=== PATIENT | female | born 1975 | race Hispanic/Latino ===

== ENCOUNTER 2016-11-07 05:36 | Emergency (ER) | payer OTHER ==
[~2016-11-07] VITALS: Ht 154.9 cm; Wt 56.7 kg
[~2016-11-07 05:36] MED LIST: 3-DAY VAGINAL C21 GM VG; BACTRIM DS 8001 TAB PO; CIPRO 500MG (E500 MG PO; CIPRO 500MG TA500 MG PO; DIFLUCAN150 M1 PO; DIFLUCAN150 MG PO; METROGEL0.751 VG; PYRIDIUM100 MG PO; PYRIDIUM200 MG PO
[2016-11-07 05:40] VITALS: BP 99/75
--- NOTE | 2016-11-07 06:00 | ED GI/GU/ABDOMINAL COMPLAINT ---
History of Present Illness General Chief Complaint: Female Urogenital Problems Stated Complaint: PER PT ? UTI Source: patient Exam Limitations: no limitations Vital Signs & Intake/Output Vital Signs & Intake/Output Vital Signs Date Time Temp Pulse Resp B/P B/P Pulse O2 O2 Flow FiO2 Mean Ox Delivery Rate 11/07 0540 97.3 73 18 99/75 97 Room Air Allergies Coded Allergies: NO KNOWN ALLERGIES (12/26/11) Reconcile Medications Ciprofloxacin (Cipro) 500 MG TABLET 1 TAB PO BID PID Ciprofloxacin (Cipro) 500 MG TAB 1 TAB PO BID UTI Clotrimazole (3-Day Vaginal Cream) 21 GM CREAM.APPL 1 [place]ERSON VG DAILY YEAST Fluconazole (Diflucan) 150 MG TAB 1 TAB PO ONCE YEAST Fluconazole (Diflucan) 150 MG TABLET 1 TAB PO ONCE YEAST INFECTION Metronidazole (Metrogel-Vaginal) 0.75% GEL 1 A VG QPM INFECTION Phenazopyridine HCl (Pyridium) 100 MG TABLET 1-2 TAB PO TID PRN painful urination PHENAZOPYRIDINE HCL (Pyridium) 100 MG TAB 1 TAB PO TID DYSURIA TAKE WITH FOOD, PLEASE NOTE THAT YOUR URINE MAY CHANGE THE COLOR ORANGE Phenazopyridine Hydrochlorid2 (Pyridium) 200 MG TAB 1 TAB PO TID PRN DYSURIA Phenazopyridine Hydrochlorid2 (Pyridium) 200 MG TAB 1 TAB PO TID DYSURIA Sulfamethoxazole/Trimethopri (Bactrim Ds 800 MG-160 MG) 1 TAB TAB 1 TAB PO BID INFECTION Sulfamethoxazole/Trimethoprim (Bactrim Ds Tablet) 800 MG-160 MG TABLET 1 TAB PO BID uti Triage Nurses Notes Reviewed? yes ? N Is pt currently ? No Onset: Gradual Duration: day(s):, waxing and waning Timing: recent history Quality/Severity: burning Location: suprapubic Radiation: no radiation Activities at Onset: none Associated Symptoms: dysuria, urinary frequency HPI: 41 yo woman in prior good health presents with dysuria, polyuria for the past 4 days. "I think I have a urine infection." She denies fever, chills, recent sexual activity, flank pain, diarrhea. Past History Travel History Traveled to [place] past 21 day No Medical History Any Pertinent Medical History? 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 No Review of Systems Review of Systems Constitutional: Reports: no symptoms. EENTM: Reports: no symptoms. Respiratory: Reports: no symptoms. Cardiovascular: Reports: no symptoms. GI: Reports: no symptoms. Genitourinary: Reports: no symptoms. Musculoskeletal: Reports: no symptoms. Skin: Reports: no symptoms. Neurological/Psychological: Reports: no symptoms. Hematologic/Endocrine: Reports: no symptoms. Immunologic/Allergic: Reports: no symptoms. All Other Systems: Reviewed and Negative Physical Exam Physical Exam General Appearance: well developed/nourished, no apparent distress Head: atraumatic, normal appearance Eyes: Bilateral: normal appearance. Ears, Nose, Throat, Mouth: hearing grossly normal Neck: normal inspection, supple, full range of motion Respiratory: normal breath sounds, chest non-tender, no respiratory distress, quiet respiration, lungs clear Cardiovascular: regular rate/rhythm Gastrointestinal: normal bowel sounds, soft, non-tender, mild suprapubic tenderness. no rlq tenderness. no rebound. no guarding Back: normal inspection Extremities: normal range of motion Neurologic/Psych: no motor/sensory deficits, awake, alert, oriented x 3 Skin: intact, normal color, warm/dry Core Measures ACS in differential dx? No Severe Sepsis Present: No Septic Shock Present: No Progress Differential Diagnosis: kidney stone, ovarian cyst, UTI/pyelo Plan of Care: Orders Procedure Date/time Status URINE 11/07 558 Complete URINALYSIS 11/07 558 Complete Current Medications Sig/Elaine Start time Last Medication Dose Stop Time Status Admin Phenazopyridine HCl 100 MG ONCE ONE 11/07 629 UNVr (Pyridium) 11/07 630 Trimethoprim/ 1 TAB ONCE ONE 11/07 629 UNVr Sulfamethoxazole 11/07 630 (Bactrim DS) Laboratory Tests 11/07/16 0605: Urine Color YEL, Urine Clarity CLEAR, Urine pH 6.0, Ur Specific [place] 1.020, Urine Protein NEG, Urine Ketones NEG, Urine Nitrite NEG, Urine Bilirubin NEG, Urine Urobilinogen 0.2, Ur Leukocyte Esterase NEG, Ur Microscopic SEDIMENT EXAMINED, Urine RBC RARE, Urine WBC 1-3 H, Ur Epithelial Cells MANY H, Urine Bacteria FEW H, Urine Mucus FEW, Urine Hemoglobin SMALL H, Urine Glucose NEG, Urine Test NEGATIVE Initial ED EKG: none Departure Departure Disposition: HOME OR SELF CARE Condition: Stable Clinical Impression Primary Impression: Urinary tract infection Referrals: PATIENT HAS NO PRIMARY CARE DR (PCP/Family) Departure Forms: Customer Survey General Discharge Information Prescriptions: Current Visit Scripts Sulfamethoxazole/Trimethoprim (Bactrim Ds Tablet) 1 TAB PO BID #6 TAB Phenazopyridine HCl (Pyridium) 1-2 TAB PO TID PRN painful urination #10 TAB Comments 11/07/16, 6:24am... pt with equivocal u/a for uti, but with symptoms... will treat for cystitis w/ bactrim x 3 days.
[2016-11-07] MEDS ORDERED: PYRIDIUM100 M1 PO (06:24)
[2016-11-07] MEDS ORDERED: BACTRIM DS TAB1 EACH PO (06:24)
[2016-12-25] MEDS ORDERED: KEFLEX500 M1 PO (20:39)
== END 2016-11-07 06:39 ==
LOC: ERH 05:36
DX: N39.0 Urinary tract infection, site not specified (principal)
CPT/HCPCS: 81001; 81025

== ENCOUNTER 2017-11-18 12:49 | Emergency (ER) | payer OTHER ==
[~2017-11-18 12:49] MED LIST changes: +BACTRIM DS TAB1 EACH PO; +FLAGYL500 MG PO; +IBUPROFEN800 M1 PO; +KEFLEX500 M1 PO; +MOBIC15 M1 PO; +PYRIDIUM100 M1 PO
--- NOTE | 2017-11-18 13:35 | ED GI/GU/ABDOMINAL COMPLAINT ---
History of Present Illness General Chief Complaint: Abdominal Pain/Flank Pain Stated Complaint: ABD PAIN, SEEN HERE 11/16 FOR SAME Source: patient, old records Exam Limitations: no limitations Vital Signs & Intake/Output Vital Signs & Intake/Output Vital Signs Date Time Temp Pulse Resp B/P B/P Pulse O2 O2 Flow FiO2 Mean Ox Delivery Rate 11/18 1435 Room Air 11/18 1301 97.0 76 20 121/80 97 Room Air Allergies Coded Allergies: No Known Allergies (11/16/17) Reconcile Medications Ibuprofen 800 MG TABLET 1 TAB PO TID PRN pain Triage Note: PT TO ED C/O MID ABD PAIN. PT WAS SEEN IN ED ON 11/16 AND DIAGNOSED WITH "APPENDIX STONE". WAS TOLD TO RETURN IF PAIN PERSISTED. ALSO C/O NAUSEA. Triage Nurses Notes Reviewed? yes ? N Is pt currently ? No HPI: 42F no significant PMH, recently seen in ED 2 days ago for RLQ and right flank pain, found to have an appendicolith, surgery consulted with no intervention, returns today with continued intermittent right flank pain, now with periumbilical constant pain and bloating which started yesterday. She had a hard bowel movement yesterday without blood. She denies fever, chills, headache, sore throat, chest pain, SOB, dysuria, hematuria. No history of trauma. Symptoms have worsened considerably since 2 days ago. Past History Travel History Traveled to [place] past 21 day No Medical History Any Pertinent Medical History? 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 No Review of Systems Review of Systems Constitutional: Reports: no symptoms. EENTM: Reports: no symptoms. Respiratory: Reports: no symptoms. Cardiovascular: Reports: no symptoms. GI: Reports: no symptoms. Genitourinary: Reports: no symptoms. Musculoskeletal: Reports: no symptoms. Skin: Reports: no symptoms. Neurological/Psychological: Reports: no symptoms. Hematologic/Endocrine: Reports: no symptoms. Immunologic/Allergic: Reports: no symptoms. All Other Systems: Reviewed and Negative Physical Exam Physical Exam General Appearance: well developed/nourished, mild distress Head: atraumatic, normal appearance Eyes: Bilateral: normal appearance. Ears, Nose, Throat, Mouth: hearing grossly normal, moist mucous membrane Neck: normal inspection, supple, full range of motion Respiratory: normal breath sounds, no respiratory distress Cardiovascular: regular rate/rhythm Gastrointestinal: central bloating, RLQ tenderness, no rebound or guarding Back: normal inspection, normal range of motion Extremities: normal range of motion Neurologic/Psych: awake, alert, oriented x 3, normal mood/affect Skin: intact, normal color, warm/dry Core Measures ACS in differential dx? No Sepsis Present: No Sepsis Focused Exam Completed? No Progress Differential Diagnosis: AAA, AMI, appendicitis, biliary colic, bowel obstruction , colon cancer, cholecystitis, diverticulitis, ectopic , endometritis, esophageal varices, gastritis, hepatitis, hernia, hemorrhoids, ischemic bowel, inflamm bowel dis, intrauterine , kidney stone, Cyndi-Gerri tear, ovarian cyst, ovarian torsion, pancreatitis, PID/cervicitis, peptic ulcer, PUD/ GERD, perforated viscous, SBO, threatened AB, UTI/pyelo Plan of Care: Orders Procedure Date/time Status LIPASE 11/18 1335 Complete LACTIC ACID 11/18 1335 Complete COMPREHENSIVE METABOLIC PANEL 11/18 1335 Complete CBC WITHOUT DIFFERENTIAL 11/18 1335 Complete Laboratory Tests 11/18/17 1410: Anion Gap 12, Estimated GFR > 60, BUN/Creatinine Ratio 18.0, Glucose 132 H, Lactic Acid 1.8, Calcium 9.5, Total Bilirubin 0.7, AST 13 L, ALT 19, Alkaline Phosphatase 62, Total Protein 7.8, Albumin 4.2, Globulin 3.6, Albumin/Globulin Ratio 1.2, Lipase 70, CBC w Diff NO MAN DIFF REQ, RBC 4.04 L, MCV 90.0, MCH 29.0, MCHC 32.2 L, RDW 14.2, MPV 7.8, Gran % 58.9, Lymphocytes % 33.1, Monocytes % 6.2, Eosinophils % 1.1, Basophils % 0.7, Absolute Granulocytes 2.2, Absolute Lymphocytes 1.2, Absolute Monocytes 0.2, Absolute Eosinophils 0, Absolute Basophils 0 Diagnostic Imaging: Viewed by Me: CT Scan. Discussed w/RAD: CT Scan. Radiology Impression: PATIENT: NELA BANKS PRESENT AGE: 42 PATIENT ACCOUNT NO: [id number] : 74 LOCATION: [facility] ORDERING PHYSICIAN: Krystle Tamayo MD SERVICE DATE: 11/18/17 EXAM TYPE : CAT - CT ABD & PELVIS W IV CONTRAST EXAMINATION: CT ABDOMEN AND PELVIS WITH CONTRAST CLINICAL INFORMATION: Severe right lower quadrant and periumbilical abdominal pain. COMPARISON: Priors including recent study of 11/16/17. TECHNIQUE : Multidetector volumetric imaging was performed of the abdomen and pelvis following IV administration of 95 mL of Optiray 320 intravenous contrast. Sagittal and coronal reformatted images were obtained on the technologist's workstation. DLP: 280.47 mGy-cm FINDINGS: LUNG BASES: There is mild bibasilar patchy opacity consistent with scarring or atelectasis. LIVER, GALLBLADDER, AND BILIARY TREE: The liver is normal in size, shape, and attenuation. No focal hepatic lesion or biliary ductal dilatation is present. The gallbladder is unremarkable with no evidence of radiopaque gallstones, gallbladder wall thickening, or obvious pericholecystic inflammatory changes. PANCREAS: Unremarkable. SPLEEN: Unremarkable. ADRENAL GLANDS: Unremarkable. KIDNEYS AND URETERS: The kidneys are normal in size, shape, and attenuation. No hydronephrosis, hydroureter, or calculi seen. No perinephric stranding. BLADDER: Unremarkable. GASTROINTESTINAL TRACT: The stomach and duodenum are unremarkable. No abnormality of the small bowel or mesentery is demonstrated. The colon is unremarkable. The appendix is normal. ABDOMINAL WALL: No significant hernia is appreciated. LYMPH NODES: Normal. VASCULAR: Unremarkable. PELVIC VISCERA: The uterus is unremarkable. A small partially collapsed cyst is seen in the left ovary consistent with corpus luteum cyst. The right adnexa is unremarkable. There is no free fluid. OSSEOUS STRUCTURES: Unremarkable. IMPRESSION: Unremarkable examination. No cause for abdominal pain identified. DICTATED BY: Nadira Albarran MD DATE/TIME DICTATED:11/18/171502 RESIDENTIAL MANAGER: CATINA DATE/TIME TRANSCRIBED:11/18/171502 CONFIDENTIAL, DO NOT COPY WITHOUT APPROPRIATE AUTHORIZATION. <Electronically signed in Other Vendor System> SIGNED BY: Nadira Albarran MD 11/18/17 0079 Initial ED EKG: none Departure Departure Disposition: HOME OR SELF CARE Condition: Stable Clinical Impression Primary Impression: Periumbilical pain Secondary Impressions: Constipation Qualifiers: Constipation type: other constipation type Qualified Code: K59.09 - Other constipation Referrals: Jeimy LANIER,Jeyson Ayala Patient Has No Primary Care Dr (PCP/Family) Additional Instructions: Follow up with your PCP and the GI referral. Take Dulcolax and Miralax for constipation. Return if new or worsening symptoms. Departure Forms: Customer Survey General Discharge Information
[2017-11-18 14:24] LABS: ABSOLUTE BASOPHIL COUNT 0 /CUMM (0.0-0.2); ABSOLUTE EOSINOPHIL COUNT 0 /CUMM (0.0-0.7); ABSOLUTE GRANULOCYTE CT 2.2 /CUMM (1.4-6.5); ABSOLUTE LYMPH COUNT 1.2 /CUMM (1.2-3.4); ABSOLUTE MONOCYTE COUNT 0.2 /CUMM (0.10-0.60); BASOPHIL % 0.7 % (0.0-2.0); EOSINOPHIL % 1.1 % (0-5); GRANULOCYTE % 58.9 % (42.2-75.2); HEMATOCRIT 36.4 % (37-47); MEAN CORPUSCULAR HGB CONC 32.2 G/DL (33.0-37.0); MEAN PLATELET VOLUME 7.8 FL (7.4-10.4); PLATELET COUNT 278 /CUMM (130-400); RBC DISTRIBUTION WIDTH 14.2 % (11.5-14.5); RED BLOOD CELL CT 4.04 /CUMM (4.20-5.40); WHITE BLOOD CELL COUNT 3.7 /CUMM (4.8-10.8)
--- NOTE | 2017-11-18 15:19 | CT SCAN REPORT ---
EXAMINATION: CT ABDOMEN AND PELVIS WITH CONTRAST CLINICAL INFORMATION: Severe right lower quadrant and periumbilical abdominal pain. COMPARISON: Priors including recent study of 11/16/17. TECHNIQUE: Multidetector volumetric imaging was performed of the abdomen and pelvis following IV administration of 95 mL of Optiray 320 intravenous contrast. Sagittal and coronal reformatted images were obtained on the technologist's workstation. DLP: 280.47 mGy-cm FINDINGS: LUNG BASES: There is mild bibasilar patchy opacity consistent with scarring or atelectasis. LIVER, GALLBLADDER, AND BILIARY TREE: The liver is normal in size, shape, and attenuation. No focal hepatic lesion or biliary ductal dilatation is present. The gallbladder is unremarkable with no evidence of radiopaque gallstones, gallbladder wall thickening, or obvious pericholecystic inflammatory changes. PANCREAS: Unremarkable. SPLEEN: Unremarkable. ADRENAL GLANDS: Unremarkable. KIDNEYS AND URETERS: The kidneys are normal in size, shape, and attenuation. No hydronephrosis, hydroureter, or calculi seen. No perinephric stranding. BLADDER: Unremarkable. GASTROINTESTINAL TRACT: The stomach and duodenum are unremarkable. No abnormality of the small bowel or mesentery is demonstrated. The colon is unremarkable. The appendix is normal. ABDOMINAL WALL: No significant hernia is appreciated. LYMPH NODES: Normal. VASCULAR: Unremarkable. PELVIC VISCERA: The uterus is unremarkable. A small partially collapsed cyst is seen in the left ovary consistent with corpus luteum cyst. The right adnexa is unremarkable. There is no free fluid. OSSEOUS STRUCTURES: Unremarkable. IMPRESSION: Unremarkable examination. No cause for abdominal pain identified.
[2017-11-18 16:11] VITALS: BP 114/76
== END 2017-11-18 16:18 ==
LOC: ERH 12:49
PROVIDERS: Internal Medicine
DX: R10.33 Periumbilical pain (principal); K59.00 Constipation, unspecified
CPT/HCPCS: 74177